=== PATIENT | female | born 1960 | race Caucasian/White ===

== ENCOUNTER → 2017-08-25 11:26 | Outpatient (CLI) | payer OTHER, SELFPAY ==
--- NOTE | 2017-08-25 13:30 | PC.NURSE ---
STRESS TEST CANCELED PER YADI PRO. BLOOD PRESSURE VERY HIGH. PATIENT REFUSED TO GO TO EMERGENCY ROOM . DR. ANN WAS CALLED AND NEW BP MEDICATON WAS GIVEN TO PATIENT
== END ==
PROVIDERS: PCP Obstetrics & Gynecology; Visit Provider Internal Medicine
DX: R06.00 Dyspnea, unspecified (principal); I25.10 Atherosclerotic heart disease of native coronary artery without angina pectoris; I11.9 Hypertensive heart disease without heart failure; E78.5 Hyperlipidemia, unspecified; R53.83 Other fatigue; G47.33 Obstructive sleep apnea (adult) (pediatric)
CPT/HCPCS: 78452; A9502

== ENCOUNTER → 2017-11-30 08:01 | Outpatient (CLI) | payer OTHER, SELFPAY ==
--- NOTE | 2017-11-30 08:03 | AS_ITS ---
Renal Arterial Duplex Indications: HTN. IMPRESSIONS Normal bilateral renal artery evaluation. Complete renal arterial duplex. Duplex scan and Doppler flow study including spectral analysis, color and chamberlain scale imaging. Height: Height: 165.1cm. Height: 65in. Weight: Weight: 47.6kg. Weight: 104.8lb. Body mass index: BMI: 17.5kg/m^2. Body surface area: BSA: 1.47m^2. Location: Vascular laboratory. Patient status: Outpatient. Tables: Arterial flow: + +--------+--------+-------+---------+ Location V sys V ed Comment Resistive + +--------+--------+-------+---------+ Right renal - proximal 66cm/s 29.8cm/s ------- 0.60 + +--------+--------+-------+---------+ Right renal - mid 77.7cm/s 25.4cm/s RAR 1.0 0.70 + +--------+--------+-------+---------+ Right renal - distal 63.6cm/s 29.3cm/s ------- 0.50 + +--------+--------+-------+---------+ Left renal - proximal 70cm/s 23.1cm/s ------- 0.70 + +--------+--------+-------+---------+ Left renal - mid 133cm/s 44cm/s RAR 1.8 0.70 + +--------+--------+-------+---------+ Left renal - distal 117cm/s 35.2cm/s ------- 0.70 + +--------+--------+-------+---------+ Renal anatomy: + +-----+------+ Left Right + +-----+------+ Long axis 9.5cm 11.1cm + +-----+------+ Short axis 5.4cm 4.3cm + +-----+------+ Cortical thickness 0.9cm 0.9cm + +-----+------+ Velocity ratios: + +-----+ V sys + +-----+ Right renal/aortic 1 + +-----+ Left renal/aortic 1.8 + +-----+ (Report amended ) Electronically signed by: Thom Sinclair [id number]
[2017-11-30 11:03] LABS: Anion Gap 10.4 mEq/L (5-15); Blood Urea Nitrogen 13 mg/dL (7-18); Calcium 9.5 mg/dL (8.5-10.1); Carbon Dioxide 31 mmol/L (21.0-32.0); Chloride 99 mmol/L (98-107); Creatinine,Serum 1.02 mg/dL (0.55-1.02); Estimated Glomerular Filt Rate 56 ml/min (>60); GFR (African American) 68 ML/MIN (>60); Glucose 109 mg/dL (74-106); Potassium 5.4 mmoL/L (3.5-5.1); Sodium 135 mmol/L (136-145)
== END ==
PROVIDERS: PCP Family Medicine; Visit Provider Internal Medicine
DX: I25.10 Atherosclerotic heart disease of native coronary artery without angina pectoris (principal); E78.2 Mixed hyperlipidemia; G47.33 Obstructive sleep apnea (adult) (pediatric); I10 Essential (primary) hypertension; I11.9 Hypertensive heart disease without heart failure; I20.9 Angina pectoris, unspecified; K21.9 Gastro-esophageal reflux disease without esophagitis; R00.2 Palpitations; R06.09 Other forms of dyspnea; R53.83 Other fatigue
CPT/HCPCS: 36415; 80048; 93976

== ENCOUNTER → 2017-12-04 13:22 | Outpatient (CLI) | payer OTHER, SELFPAY ==
[2017-12-04 13:59] LABS: Anion Gap 8.8 mEq/L (5-15); Blood Urea Nitrogen 16 mg/dL (7-18); Calcium 8.9 mg/dL (8.5-10.1); Carbon Dioxide 31 mmol/L (21.0-32.0); Chloride 100 mmol/L (98-107); Creatinine,Serum 0.87 mg/dL (0.55-1.02); Estimated Glomerular Filt Rate 67 ml/min (>60); GFR (African American) 81 ML/MIN (>60); Glucose 97 mg/dL (74-106); Potassium 4.8 mmoL/L (3.5-5.1); Sodium 135 mmol/L (136-145)
== END ==
PROVIDERS: PCP Family Medicine; Visit Provider Physician Assistant
DX: I25.10 Atherosclerotic heart disease of native coronary artery without angina pectoris (principal)
CPT/HCPCS: 36415; 80048

== ENCOUNTER → 2018-07-13 14:05 | Outpatient (CLI) | payer OTHER, SELFPAY ==
[2018-07-13 20:05] LABS: Anion Gap 12.7 mEq/L (5-15); Blood Urea Nitrogen 11 mg/dL (7-18); Calcium 8.9 mg/dL (8.5-10.1); Carbon Dioxide 27 mmol/L (21.0-32.0); Chloride 86 mmol/L (98-107); Creatine Kinase 112 U/L (26-192); Creatinine,Serum 0.97 mg/dL (0.55-1.02); Estimated Glomerular Filt Rate 59 ml/min (>60); GFR (African American) 72 ML/MIN (>60); Glucose 95 mg/dL (74-106); Potassium 4.7 mmoL/L (3.5-5.1); Sodium 121 mmol/L (136-145)
== END ==
PROVIDERS: Visit Provider Urology
DX: R25.2 Cramp and spasm (principal)
CPT/HCPCS: 36415; 80048; 82550

== ENCOUNTER 2020-08-23 12:55 | Emergency (ER) | payer MEDICARE, MEDICAID, SELFPAY ==
--- NOTE | 2020-08-23 13:20 | XR_ITS ---
PROCEDURE INFORMATION: Exam: XR Chest Exam date and time: 08/23/2020 1:20 PM Age: 59 years old Clinical indication: Right-sided and left-sided; Patient HX: Bilateral posterior pain, no fall; Additional info: Pain no fall TECHNIQUE: Imaging protocol: XR of the chest. Views: 2 views. COMPARISON: CR CXR CHEST(2 VIEWS-NOT PORTABLE) 03/31/2016 12:09 PM FINDINGS: Lungs: Hyperinflation and mild interstitial prominence. Pleural spaces: No pleural effusion. Heart/Mediastinum: Normal configuration of the heart. Vasculature: Ectasia of the thoracic aorta. Bones/joints: Old left rib fractures. Osteopenia , compression fractures, and degenerative change. When correlating with the previous study, no significant interval changes are present. IMPRESSION: Stable appearance of the chest, not significantly changed from 03/31/16.
[2020-08-23 14:26] VITALS: BP 183/110; PULSE 82; RESP 20; TEMP 37.1; O2SAT 99; BMI 19.1
[2020-08-23 14:54] VITALS: BP 175/96; PULSE 87; RESP 14; TEMP 37.1
--- NOTE | 2020-08-23 15:04 | HMH.EDUTC ---
[facility] [place] Disposition Clinical Impression: Low back pain with sciatica Qualifiers: Chronicity: acute Back pain laterality: bilateral Sciatica laterality: bilateral sciatica Qualified Code(s): M54.42 - Lumbago with sciatica, left side Disposition: Home, Self-Care Condition on Discharge: Good Instructions: Low Back Pain, DI for Low Back Pain, DI for Sciatica Additional Instructions: Go home and rest. It would be best if you rested tomorrow too. No heavy lifting. No twisting. Take the oral medications as directed. The muscle relaxer (cyclobenzaprine-flexeril) will make you drowsy, so don't drive or operate heavy machinery after taking it. Don't start the oral steroids (medrol dose pack) until tomorrow, since you had the shots in here today. Follow up with your regular doctor. GO TO THE ER FOR ANY WORSENING SYMPTOMS OR CONCERN, ESPECIALLY BLADDER ISSUES, SADDLE AREA NUMBNESS, FEVER, ETC Prescriptions: Cyclobenzaprine HCl [Cyclobenzaprine 10mg Tab] 10 mg PO BIDP PRN #20 tab PRN Reason: Muscle Spasm Transmission Status: Received by [facility] methylPREDNISolone [Medrol] 4 mg PO DIRECTED 6 Days #21 tab.ds.pk Transmission Status: Re[facility] by [facility] Referrals: Kash Morataya [Primary Care Provider] - Time of Disposition: 15:06 Medical Decision Making - Medical Records Medical records reviewed: No: I reviewed the patient's medical records. - Tip Inquiry Pt receiving controlled substance: No Vital Signs: 08/23/20 14:26 08/23/20 14:54 Temperature 98.7 F 98.7 F Temperature Source Oral Pulse Rate 87 Pulse Rate [Right] 82 Respiratory Rate 20 14 Blood Pressure 175/96 H Blood Pressure [Right Arm] 183/110 H Blood Pressure Mean [Right Arm] 134 Blood Pressure Source [Right Arm] Automatic Cuff Blood Pressure Position [Right Arm] Sitting 02 Sat by Pulse Oximetry 99 Orders (Tests/Meds): ED MEDICATIONS Discontinued Medications Generic Name Dose Route Start Last Admin Trade Name Freq PRN Reason Stop Dose Admin Ketorolac Tromethamine 60 mg 08/23/20 14:36 08/23/20 14:44 Ketorolac 60mg/2ml Vial IM 08/23/20 14:37 60 mg ONCE ONE Administration Methylprednisolone Sodium Succinate 125 mg 08/23/20 14:36 08/23/20 14:44 Methylprednisolone Sod Succ 125mg Vial IM 08/23/20 14:37 125 mg ONCE ONE Administration [facility] [place] HPI - General Stated complaint: ribs and back pain, no accident Time Seen by Provider: 08/23/20 14:35 Mode of Arrival: Ambulatory Source of Information: Patient Limitations: No Limitations Description of Symptoms (Recalled from Triage Doc. by RN): pt states, every fucking thing is hurting me. I used a whole thing of bengay last night and haven't slept in three days. . no injury noted. HEENT Symptoms (Recalled from RN notes): No Resp Symptoms (Recalled from RN notes): No Skin Symptoms (Recalled from RN notes): No MS Symptoms (Recalled from RN notes): No Functional Status (Recalled from RN notes): pain all over per pt - History of Present Illness Provider Complaint: She c/o low back pain that radiates down both legs to just above her knees. She denies any recent injuries or falls. She denies any bowel or bladder issues. - Related Data Home Medications Medication Instructions Recorded Confirmed aspirin 81 mg tablet,delayed 81 mg PO ONCE 03/27/17 11/14/17 release nitroglycerin 0.4 mg sublingual 0.4 mg SUBLINGUAL Q5M PRN 03/27/17 11/14/17 tablet Previous Rx's Medication Instructions Recorded amlodipine 10 mg tablet 10 mg PO ONCE #30 tab 08/28/17 metoprolol tartrate 25 mg tablet 25 mg PO BID #180 tab 10/18/17 omeprazole 40 mg capsule,delayed 40 mg PO BID #180 cap 10/18/17 release lisinopril 20 mg tablet 20 mg PO BID #60 tab 11/14/17 ropinirole 1 mg tablet 1 mg PO QHS #30 tab 11/14/17 hydrochlorothiazide 25 mg tablet 25 mg PO DAILY #30 tab 04/09/18 fluticasone propionate 50 1 spray INTRANASAL ONCE #9.
== END 2020-08-23 15:17 | disposition home or self-care (01) ==
PROVIDERS: Emergency Provider Nurse Practitioner Family; PCP Internal Medicine
DX: M54.16 Radiculopathy, lumbar region (principal); M54.42 Lumbago with sciatica, left side; I48.20 Chronic atrial fibrillation, unspecified; I10 Essential (primary) hypertension; E78.5 Hyperlipidemia, unspecified; F17.210 Nicotine dependence, cigarettes, uncomplicated; Z88.0 Allergy status to penicillin; Z88.5 Allergy status to narcotic agent
CPT/HCPCS: G0463; 71046; 96372; 99202

== ENCOUNTER → 2021-01-05 10:38 | Outpatient (CLI) | payer MEDICARE, MEDICAID, SELFPAY ==
--- NOTE | 2021-01-05 10:48 | XR_ITS ---
PROCEDURE: XR SHOULDER RT MIN 2V CLINICAL INDICATION: RT SHOULDER PAIN COMPARISON: CR SHOU3R [id number] VIEWS from 09/11/2013 CR SHOU3R [id number] VIEWS from 03/21/2014 CR CXR CHEST(2 VIEWS-NOT PORTABLE) from 03/31/2016 FINDINGS: No acute fracture or dislocation. There is cortical thickening of the midshaft of the clavicle consistent with an old clavicular fracture. There is good alignment. No significant subacromial stenosis. Minimal osteoarthritic change of the glenohumeral joint. Multiple old right rib fractures are noted Other findings:None. IMPRESSION: Old midshaft clavicular fracture and multiple old right-sided rib fractures. Minimal osteoarthritic changes the glenohumeral joint Dictated by: Peterson Fox MD 01/05/2021 11:17 Peterson Fox MD in [place] 01/05/2021 11:17
== END ==
PROVIDERS: PCP Internal Medicine; Visit Provider Internal Medicine
DX: M25.511 Pain in right shoulder (principal)
CPT/HCPCS: 73030

== ENCOUNTER → 2021-02-16 13:19 | Outpatient (CLI) | payer MEDICARE, MEDICAID, SELFPAY | PROVIDERS: PCP Internal Medicine; Visit Provider Physician Assistant | DX: M25.511 Pain in right shoulder (principal) ==

== ENCOUNTER → 2021-06-18 15:17 | Outpatient (CLI) | payer MEDICARE, MEDICAID, SELFPAY ==
--- NOTE | 2021-06-18 | CA_ITS ---
FINAL REPORT TECHNIQUE: Ultrasound images of the deep venous system were obtained from the left groin to the calf veins. CLINICAL HISTORY: .PAIN FINDINGS: The deep venous system is normally compressible. Normal flow is identified. IMPRESSION: No evidence of left lower extremity DVT. Reviewed, Interpreted and Dictated by Damien Das MD Transcribed by Marleny Yang Authenticated by Damien Das MD on 06/18/2021 04:25:21 PM [facility]
== END ==
PROVIDERS: PCP Internal Medicine; Visit Provider Internal Medicine
DX: M79.605 Pain in left leg (principal); M79.89 Other specified soft tissue disorders
CPT/HCPCS: 93971

== ENCOUNTER → 2022-06-20 17:10 | Outpatient (CLI) | payer MEDICARE, MEDICAID, SELFPAY ==
[2022-06-20 17:43] LABS: Basophils % 0.3 % (0.1-2.0); Eosinophils # 0.1 K/mm3 (0.0-0.4); Hematocrit 38.9 % (37.0-47.0); Hemoglobin 13.1 g/dL (12.2-16.2); Lymphocytes # 2.5 K/mm3 (0.7-4.5); Lymphocytes % 32.6 % (10-50); Mean Corpuscular HGB Conc 33.6 g/dL (31.8-35.4); Mean Corpuscular Hemoglobin 31.8 pg (27.0-31.2); Mean Corpuscular Volume 94.7 fl (81-99); Mean Platelet Volume 7.8 fl (7.4-10.4); Monocytes # 0.7 K/mm3 (0.1-1.0); Monocytes % 8.6 % (1.7-9.3); Neutrophils # 4.4 K/mm3 (1.8-7.8); Neutrophils % 57.5 % (37.0-80.0); Platelet Count 481 K/mm3 (142-424); Red Blood Count 4.11 M/mm3 (4.20-5.40); Red Cell Distribution Width 13.2 % (11.5-17.5); White Blood Count 7.7 K/mm3 (4.8-10.8)
[2022-06-20 18:05] LABS: Erythrocyte Sedimentation Rate 19 mm/hr (0-30)
[2022-06-20 18:41] LABS: Chloride 91 mmol/L (98-107); Sodium 134 mmol/L (136-145)
[2022-06-20 18:42] LABS: Potassium 3.5 mmoL/L (3.5-5.1)
[2022-06-20 18:45] LABS: Calcium 9.6 mg/dl (8.4-10.2); Glucose 97 mg/dl (74-100); HDL Cholesterol 59 mg/dl (40-60)
[2022-06-20 18:56] LABS: Direct LDL Cholesterol 103.73 mg/dL (100-129)
[2022-06-20 19:01] LABS: Free T4 (Free Thyroxine) 1.15 ng/dl (0.78-2.19)
[2022-06-20 19:16] LABS: Thyroid Stimulating Hormone 2.07 uIU/mL (0.465-4.68)
[2022-06-20 20:05] LABS: Alanine Aminotransferase 17 U/L (12-78); Albumin Level 4.5 g/dl (3.5-5.0); Albumin/Globulin Ratio 1.6 (1.1-1.8); Alkaline Phosphatase 106 U/L (38-126); Anion Gap 17.5 mEq/L (5-15); Aspartate Amino Transferase 26 U/L (14-36); Bilirubin,Total 0.5 mg/dl (0.2-1.3); Blood Urea Nitrogen 14 mg/dl (7-17); Carbon Dioxide 29 mmol/L (22.0-30.0); Chol/HDL Ratio 3.2 (1-3.5); Cholesterol 190 mg/dl (140-200); Estimated Glomerular Filt Rate 57 ml/min (>60); GFR (African American) 68 ML/MIN (>60); Globulin 2.8 g/dL (1.3-3.2); Total Protein,Serum 7.3 g/dl (6.3-8.2); Triglycerides 130 mg/dl (30-150); VLDL Cholesterol 26 mg/dL (0-40)
== END ==
PROVIDERS: PCP Internal Medicine; Visit Provider Internal Medicine
DX: I10 Essential (primary) hypertension (principal); L50.9 Urticaria, unspecified; E78.5 Hyperlipidemia, unspecified; Z79.899 Other long term (current) drug therapy
CPT/HCPCS: 80053; 80061; 84439; 84443; 85025; 85651

== ENCOUNTER → 2022-07-22 15:14 | Outpatient (CLI) | payer MEDICARE, MEDICAID, SELFPAY ==
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
--- NOTE | 2022-07-22 15:26 | XR_ITS ---
FINAL REPORT CLINICAL HISTORY: RT HAND INJURY, HIT HAND AND WRIST AGAINST DOOR, SWELLING, PAIN IN TOP OF HAND COMPARISON: None FINDINGS: RIGHT HAND Three views demonstrate no acute fracture or dislocation. There are hypertrophic changes of osteoarthritis especially in the 2nd distal interphalangeal joint. Mild dorsal soft tissue swelling over the wrist is noted. IMPRESSION: Hypertrophic changes of osteoarthritis especially involving the 2nd distal interphalangeal joint. No acute bony abnormality identified. Reviewed, Interpreted and Dictated by Damien Das MD Transcribed by Jerrica Pelaez Authenticated and [facility]
== END ==
PROVIDERS: PCP Internal Medicine; Visit Provider Internal Medicine
DX: M79.641 Pain in right hand (principal); M25.531 Pain in right wrist
CPT/HCPCS: 73110; 73130

== ENCOUNTER → 2022-09-26 16:53 | Outpatient (CLI) | payer MEDICARE, MEDICAID, SELFPAY ==
[2022-09-26 17:54] LABS: Anion Gap 17.4 mEq/L (5-15); Blood Urea Nitrogen 28 mg/dl (7-17); Calcium 9.9 mg/dl (8.4-10.2); Carbon Dioxide 27 mmol/L (22.0-30.0); Chloride 94 mmol/L (98-107); Estimated Glomerular Filt Rate 33 ml/min (>60); GFR (African American) 40 ML/MIN (>60); Glucose 82 mg/dl (74-100); Potassium 3.4 mmoL/L (3.5-5.1); Sodium 135 mmol/L (136-145)
[2022-09-26 18:44] LABS: Vitamin B12 519 pg/mL (239-931)
== END ==
PROVIDERS: PCP Internal Medicine; Visit Provider Internal Medicine
DX: I10 Essential (primary) hypertension (principal); E78.5 Hyperlipidemia, unspecified; R20.2 Paresthesia of skin
CPT/HCPCS: 80048; 82607

== ENCOUNTER 2023-05-08 09:51 | Outpatient (CLI) | payer MEDICARE, MEDICAID, SELFPAY ==
[2023-05-08 11:09] LABS: Basophils % 0.7 % (0.1-2.0); Eosinophils # 0.1 K/mm3 (0.0-0.4); Eosinophils % 1.7 % (0.1-12.0); Hematocrit 36.3 % (37.0-47.0); Hemoglobin 12.1 g/dL (12.2-16.2); Lymphocytes # 2.1 K/mm3 (0.7-4.5); Mean Corpuscular HGB Conc 33.3 g/dL (31.8-35.4); Mean Corpuscular Hemoglobin 32.3 pg (27.0-31.2); Mean Corpuscular Volume 96.9 fl (81-99); Mean Platelet Volume 7.3 fl (7.4-10.4); Monocytes # 0.4 K/mm3 (0.1-1.0); Monocytes % 6.7 % (1.7-9.3); Neutrophils # 3.1 K/mm3 (1.8-7.8); Neutrophils % 54.1 % (37.0-80.0); Platelet Count 330 K/mm3 (142-424); Red Blood Count 3.75 M/mm3 (4.20-5.40); Red Cell Distribution Width 12.9 % (11.5-17.5); White Blood Count 5.8 K/mm3 (4.8-10.8)
[2023-05-08 11:37] LABS: Alanine Aminotransferase 20 U/L (12-78); Albumin Level 4.2 g/dl (3.5-5.0); Albumin/Globulin Ratio 1.8 (1.1-1.8); Alkaline Phosphatase 123 U/L (38-126); Anion Gap 12.5 mEq/L (5-15); Aspartate Amino Transferase 27 U/L (14-36); Bilirubin,Total 0.2 mg/dl (0.2-1.3); Blood Urea Nitrogen 11 mg/dl (7-17); Calcium 9.2 mg/dl (8.4-10.2); Carbon Dioxide 31 mmol/L (22.0-30.0); Chloride 89 mmol/L (98-107); Chol/HDL Ratio 3.4 (1-3.5); Cholesterol 168 mg/dl (140-200); Estimated Glomerular Filt Rate 56 ml/min (>60); GFR (African American) 68 ML/MIN (>60); Globulin 2.4 g/dL (1.3-3.2); Glucose 89 mg/dl (74-100); HDL Cholesterol 50 mg/dl (40-60); Potassium 3.5 mmoL/L (3.5-5.1); Sodium 129 mmol/L (136-145); Total Protein,Serum 6.6 g/dl (6.3-8.2); Triglycerides 113 mg/dl (30-150); VLDL Cholesterol 23 mg/dL (0-40)
[2023-05-08 11:48] LABS: Direct LDL Cholesterol 80.85 mg/dL (100-129)
[2023-05-08 12:07] LABS: Thyroid Stimulating Hormone 1.46 uIU/mL (0.465-4.68)
[2023-05-08 12:20] LABS: Erythrocyte Sedimentation Rate 38 mm/hr (0-30)
[2023-05-08 12:42] LABS: Vitamin B12 459 pg/mL (239-931)
[2023-05-08 13:37] LABS: Folate 6.99 ng/mL
[2023-05-09 14:16] LABS: Albumin 3.6 g/dL (2.9-4.4); Alpha-1-Globulin 0.3 g/dL (0.0-0.4); Alpha-2-Globulin 0.8 g/dL (0.4-1.0); Gamma Globulin 0.9 g/dL (0.4-1.8); Protein, Total 6.5 g/dL (6.0-8.5)
[2023-05-10 08:06] LABS: Antinuclear Antibodies, IFA Positive; PDF SCANNED IMAGE
== END 2023-05-08 23:59 ==
LOC: LAB.DROPOF 09:52
PROVIDERS: PCP Internal Medicine; Visit Provider Internal Medicine
DX: I10 Essential (primary) hypertension (principal); I83.892 Varicose veins of left lower extremity with other complications; E78.5 Hyperlipidemia, unspecified; I95.0 Idiopathic hypotension; G60.9 Hereditary and idiopathic neuropathy, unspecified; Z79.899 Other long term (current) drug therapy
CPT/HCPCS: 80053; 80061; 82607; 82746; 84155; 84165; 84443; 85025; 85651; 86038

== ENCOUNTER 2024-04-17 15:24 | Emergency (ER) | payer MEDICARE, MEDICAID, SELFPAY ==
[2024-04-17 15:25] VITALS: BP 180/107; PULSE 81; RESP 16; TEMP 36.7; O2SAT 100; BMI 17.4
--- NOTE | 2024-04-17 15:35 | XR_ITS ---
PROCEDURE INFORMATION: Exam: XR Right Hand Exam date and time: 04/17/2024 4:11 PM Age: 63 years old Clinical indication: Pain; Hand; Right; Additional info: Dorsal trauma TECHNIQUE: Imaging protocol: Radiologic exam of the right hand. Views: 3 or more views. COMPARISON: CR XR HAND RT MIN 3V 07/22/2022 3:31 PM FINDINGS: Bones/joints: Minimally displaced fracture of the distal metaphysis of the 5th metacarpal with mild anterior angulation of the distal fragment. No dislocation. Severe degenerative changes at the 2nd and 3rd distal interphalangeal joints with osteophytosis and subchondral cyst formation. Soft tissues: Normal. IMPRESSION: Minimally displaced fracture of the distal metaphysis of the 5th metacarpal with mild anterior angulation of the distal fragment.
--- NOTE | 2024-04-17 15:35 | XR_ITS ---
PROCEDURE INFORMATION: Exam: XR Right Forearm Exam date and time: 04/17/2024 4:08 PM Age: 63 years old Clinical indication: Pain; Lower or forearm; Right; Additional info: Trauma distal>proximal TECHNIQUE: Imaging protocol: Radiologic exam of the right forearm. Views: 2 views. COMPARISON: No relevant prior studies available. FINDINGS: Bones/joints: No fracture or dislocation. No significant arthropathy. Negative ulnar variance. Soft tissues: Normal. IMPRESSION: No acute findings.
--- NOTE | 2024-04-17 15:35 | XR_ITS ---
PROCEDURE INFORMATION: Exam: XR Right Wrist Exam date and time: 04/17/2024 4:09 PM Age: 63 years old Clinical indication: Pain; Wrist; Right; Additional info: Blunt trauma doral ulnar swelling TECHNIQUE: Imaging protocol: Radiologic exam of the right wrist. Views: 3 or more views. COMPARISON: CR XR WRIST RT MIN 3V 07/22/2022 3:31 PM FINDINGS: Bones/joints: Minimally displaced fracture of the distal metaphysis of the 5th metacarpal with mild anterior angulation of the distal fragment. No other fracture. No dislocation. No significant wrist arthropathy. Soft tissues: Normal. IMPRESSION: 1. Minimally displaced fracture of the distal metaphysis of the 5th metacarpal with mild anterior angulation of the distal fragment. 2. No other fracture.
--- NOTE | 2024-04-17 15:35 | XR_ITS ---
PROCEDURE INFORMATION: Exam: XR Right Humerus Exam date and time: 04/17/2024 4:04 PM Age: 63 years old Clinical indication: Pain; Shoulder; Right; Additional info: Trauma TECHNIQUE: Imaging protocol: Radiologic exam of the right humerus. Views: 2 or more views. COMPARISON: No relevant prior studies available. FINDINGS: Bones/joints: No acute fracture or dislocation. Old healed mid right clavicle fracture. Mild degenerative change of the acromioclavicular and glenohumeral joints. Soft tissues: Normal. IMPRESSION: No acute findings.
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
[2024-04-17] MEDS: ACETAMINOPHEN 500MG TAB 1000 MG PO (15:50)
[2024-04-17] MEDS: IBUPROFEN 400 MG TABLET 800 MG PO (15:50)
--- NOTE | 2024-04-17 16:26 | PC.NURSE ---
rounded on the pt. the pt voices that she does not need anything at this time. call light is within reach of the pt.
[2024-04-17] MEDS: OXYCODONE 5MG IMMEDIATE RELEASE TABLET 5 MG PO (17:45)
[2024-04-17 17:55] VITALS: BP 176/90; PULSE 88; RESP 16; TEMP 36.7; O2SAT 100
--- NOTE | 2024-04-17 17:57 | PC.NURSE ---
Applied an ulnar gutter splint to patient and Dr. Baltazar confirmed the splint.
== END 2024-04-17 17:55 | disposition home or self-care (01) ==
PROVIDERS: Emergency Provider Emergency Medicine
DX: S62.306A Unspecified fracture of fifth metacarpal bone, right hand, initial encounter for closed fracture (principal); W22.8XXA Striking against or struck by other objects, initial encounter
CPT/HCPCS: 29125; 73060; 73090; 73110; 73130; 99284

== ENCOUNTER 2024-04-18 11:32 | Outpatient (RCR) | payer MEDICARE, SELFPAY | END 2024-04-18 23:59 | disposition home or self-care (01) | LOC: OT 11:32 | PROVIDERS: Visit Provider Physician Assistant | DX: S62.306A Unspecified fracture of fifth metacarpal bone, right hand, initial encounter for closed fracture (principal) | CPT/HCPCS: 97763 ==

== ENCOUNTER 2024-05-02 10:10 | Outpatient (CLI) | payer MEDICARE, SELFPAY ==
--- NOTE | 2024-05-02 10:13 | XR_ITS ---
FINAL REPORT CLINICAL HISTORY: Rt hand pain COMPARISON: 07/22/2022 FINDINGS: RIGHT HAND Three views demonstrate an overlying splint obscuring bony detail. There appears to be a mildly displaced and significantly angulated transverse fracture of the distal fifth metacarpal. There is a curvilinear metallic density projected over the third metacarpal which may represent a foreign body or overlying artifact. Advanced hypertrophic changes of osteoarthritis are noted at the second and third DIP joints. IMPRESSION: Fifth metacarpal fracture as above. Reviewed, Interpreted and Dictated by Damien Das MD Transcribed by Eda Atkins Authenticated and [facility]
--- NOTE | 2024-05-02 11:28 | XR_ITS ---
FINAL REPORT CLINICAL HISTORY: Rt Hand pain COMPARISON: 1 hour prior FINDINGS: RIGHT HAND Three views demonstrate interval removal of the splint. There is an angulated transverse fracture of the distal fifth metacarpal. No intra-articular extension is noted. The previously seen curvilinear foreign body is no longer visualized and presumed to represent an overlying artifact. Advanced hypertrophic changes of osteoarthritis are seen at the second and third DIP joints. IMPRESSION: Fifth metacarpal fracture as above. Reviewed, Interpreted and Dictated by Damien Das MD Transcribed by Eda Atkins Authenticated and [facility]
== END 2024-05-02 23:59 | disposition home or self-care (01) ==
LOC: RAD 10:11
PROVIDERS: Visit Provider Physician Assistant
DX: M79.641 Pain in right hand (principal); S62.336A Displaced fracture of neck of fifth metacarpal bone, right hand, initial encounter for closed fracture
CPT/HCPCS: 73130

== ENCOUNTER 2024-05-07 12:19 | Outpatient (CLI) | payer MEDICARE, MEDICAID, SELFPAY ==
[2024-05-07 12:51] LABS: Basophils % 0.4 % (0.1-2.0); Eosinophils # 0.1 K/mm3 (0.0-0.4); Hematocrit 36.8 % (37.0-47.0); Hemoglobin 12.1 g/dL (12.2-16.2); Lymphocytes # 2.4 K/mm3 (0.7-4.5); Lymphocytes % 46.7 % (10-50); Mean Corpuscular HGB Conc 32.9 g/dL (31.8-35.4); Mean Corpuscular Hemoglobin 31.4 pg (27.0-31.2); Mean Corpuscular Volume 95.6 fl (81-99); Mean Platelet Volume 9.3 fl (7.4-10.4); Monocytes # 0.3 K/mm3 (0.1-1.0); Monocytes % 6.2 % (1.7-9.3); Neutrophils # 2.4 K/mm3 (1.8-7.8); Neutrophils % 45.5 % (37.0-80.0); Platelet Count 301 K/mm3 (142-424); Red Blood Count 3.85 M/mm3 (4.20-5.40); Red Cell Distribution Width 12.3 % (11.5-17.5); White Blood Count 5.2 K/mm3 (4.8-10.8)
[2024-05-07 13:21] LABS: Albumin Level 4.6 g/dl (3.5-5.0); Chloride 100 mmol/L (98-107); Sodium 133 mmol/L (136-145)
[2024-05-07 13:22] LABS: Potassium 4.5 mmoL/L (3.5-5.1)
[2024-05-07 13:24] LABS: Alanine Aminotransferase 14 U/L (12-78); Anion Gap 10.5 mEq/L (5-15); Aspartate Amino Transferase 23 U/L (14-36); Bilirubin,Unconjugated 0.4 mg/dL (0.0-1.1); Blood Urea Nitrogen 10 mg/dl (7-17); Carbon Dioxide 27 mmol/L (22.0-30.0); Cholesterol 197 mg/dl (140-200); Estimated Glomerular Filt Rate 50 ml/min (>60); GFR (African American) 61 ML/MIN (>60); Triglycerides 127 mg/dl (30-150); VLDL Cholesterol 25 mg/dL (0-40)
[2024-05-07 13:25] LABS: Alkaline Phosphatase 97 U/L (38-126); Calcium 9.5 mg/dl (8.4-10.2); Chol/HDL Ratio 3.4 (1-3.5); Glucose 113 mg/dl (74-100); HDL Cholesterol 58 mg/dl (40-60); Magnesium 1.9 mg/dl (1.6-2.3)
[2024-05-07 13:36] LABS: Direct LDL Cholesterol 100.74 mg/dL (100-129)
[2024-05-07 13:39] LABS: Free T4 (Free Thyroxine) 0.93 ng/dl (0.78-2.19)
[2024-05-07 13:50] LABS: Bilirubin,Indirect 0.1 mg/dL (0.0-0.9); Bilirubin,Total 0.1 mg/dl (0.2-1.3)
== END 2024-05-07 23:59 | disposition home or self-care (01) ==
LOC: LAB 12:20
PROVIDERS: Visit Provider Internal Medicine
DX: R94.31 Abnormal electrocardiogram [ECG] [EKG] (principal); R06.09 Other forms of dyspnea; E78.2 Mixed hyperlipidemia; I25.119 Atherosclerotic heart disease of native coronary artery with unspecified angina pectoris; I11.0 Hypertensive heart disease with heart failure
CPT/HCPCS: 36415; 80048; 80061; 80076; 83735; 84439; 84443; 85025